=== PATIENT | male | born 1950 | race Caucasian/White ===

== ENCOUNTER → 2017-10-03 | Outpatient (CLI) | payer OTHER | LOC: FCPNEURO 23:20 | PROVIDERS: ATTEND Psychiatry & Neurology Sleep Medicine | DX: G47.33 Obstructive sleep apnea (adult) (pediatric) (principal); G47.31 Primary central sleep apnea; G47.61 Periodic limb movement disorder ==

== ENCOUNTER → 2017-10-26 | Outpatient (CLI) | payer OTHER, MEDICARE | LOC: FIMAGING 10:56 | PROVIDERS: ATTEND Otolaryngology | DX: R13.10 Dysphagia, unspecified (principal); K21.9 Gastro-esophageal reflux disease without esophagitis | CPT/HCPCS: 74220; 74230; 92611; G8996; G8997; G8998 ==

== ENCOUNTER → 2018-02-03 | Outpatient (CLI) | payer OTHER, MEDICARE | LOC: FIMAGING 09:52 | PROVIDERS: ATTEND Orthopaedic Surgery Hand Surgery | DX: M75.91 Shoulder lesion, unspecified, right shoulder (principal); S46.811A Strain of other muscles, fascia and tendons at shoulder and upper arm level, right arm, initial encounter ==